=== PATIENT | male | born 1970 | race African-American/Black ===

== ENCOUNTER 2019-04-09 10:41 | Inpatient (IN) | payer OTHER ==
[~2019-04-09] VITALS: Ht 175.3 cm; Wt 82.1 kg
--- NOTE | ~2019-04-09 | EMS ---
[facility] [address] [place] [address] EMS Patient Care Report Name: SHANE TONG Room #: REG MIK Turner#: [id number] Admission: 04/09/19 Attend Phys: Discharge: Date of : 74 Report #: [id number] THIS REPORT FOR: //name// Report Transmitted: 04/09/2019 11:27 EMS Care Summary [place], [place]/[facility] Incident [id number] @ 04/09/2019 10:03 Incident Location [address] Patient SHANE TONG Male, 48 Years 1970 Patient Address [address] [place] [id number] Patient History Seizures,Anxiety Disorder (Panic Attacks),Paranoid Schizophrenia, Patient Allergies No known allergies, Patient Medications Haldol, Zofran, Lorazepam, Zyprexa, Tylenol, DuoNeb, Synthroid, Dilantin, Keppra, Chief Complaint SEIZURE Disposition Transported No Lights/Ramsay Dispatch Reason Convulsions/Seizure Transported To [facility] Narrative PT FOUND LYING IN GERICHAIR. [facility] P28 ON SCENE. STAFF REPORTS PT HAD BREAKFAST AND THEN THEY WERE UNABLE TO GET HIM TO TAKE HIS DILANTIN STARTING AT ABOUT [facility] [address] [place] [address] EMS Patient Care Report Name: SHANE TONG Room #: REG MIK Turner#: [id number] Admission: 04/09/19 Attend Phys: Discharge: Date of : 74 Report #: [id number] 0930. STAFF STATES PT IS SHAKING MORE THAN NORMAL AND NOT RESPONDING TO THEM PER HIS NORMAL. UNABLE TO GAIN IV ACCESS. PT NOTED TO HAVE REDUCTION IN SHAKING AND INCREASE IN LOC ABOUT 5 MINUTES POST MEDICATION. TRANSPORTED WITHOUT INCIDENT. Initial Vitals @10:21P: 81,R: 16,BP: 164/79,Pain: 0/10,GCS: 7,Glucose: 94,CO: 0,SpO2: 97,Revised Trauma: 10, @10:15P: 80,R: 16,Pain: 0/10,GCS: 7,Revised Trauma: 10, @10:34P: 80,R: 18,BP: 128/82,GCS: 12,Revised Trauma: 11, Assessments @10:13MENTAL:Unresponsive,SKIN:No Abnormalities,HEENT:Head/Face: No Abnormalities,Eyes: No Abnormalities,Neck/Airway: No Abnormalities,LUNG SOUNDS:ABDOMEN:PELVIS//GI:EXTREMITIES:PULSE:NEURO: Impression Seizures Procedures @10:21Midazolam - 5 Milligrams (mg) - IntranasalResponse: Improved@10:13ALS AssessmentResponse: UnchangedSucceeded@PTAOxygen FlowRate: 4 Device: Nasal Cannula (NC) Response: UnchangedSucceeded Timeline FEED CRUSHER,Oxygen FlowRate: 4 Device: Nasal Cannula (NC) Response: UnchangedSucceeded, 10:01,Call Received 10:01,Dispatch Notified 10:03,Dispatched 10:03,En Route 10:10,On Scene 10:13,At Patient 10:13,ALS Assessment,Response: UnchangedSucceeded, 10:15,BP: 150/ M,PULSE: 80,RR: 16 R,SPO2: Ox,ETCO2: ,BG: ,PAIN: 0,GCS: 7, 10:21,BP: 164/79 M,PULSE: 81,RR: 16 R,SPO2: 97 Ox,ETCO2: ,B,PAIN: 0,GCS: 7, 10:21,Midazolam - 5 Milligrams (mg) - Intranasal,Response: Improved 10:29,Depart Scene 10:34,BP: 128/82 M,PULSE: 80,RR: 18 R,SPO2: Ox,ETCO2: ,BG: ,PAIN: ,GCS: 12, 10:37,At Destination 10:53,Call Closed Disclaimer v1.1 Copyright 2019 [employer] This EMS Care Summary contains data elements from the applicable legal record (which may be displayed differently). It is designed to provide pertinent [address] [address] EMS Patient Care Report Name: SHANE TONG Room #: REG ER .R.#: [id number] Admission: 04/09/19 Attend Phys: Discharge: Date of : 74 Report #: [id number] information for the following purposes: continuity of care, clinical quality, and state data reporting. The complete legal record is available to ED staff and administrators of the receiving hospital in [employer]'s Patient Tracker. All data is provided "as is."
[~2019-04-09 10:41] MED LIST: ABILIFY10 MG PO; AMANTADINE100 M1 PO; ANDROGEL1.25 GM TD; ATIVAN1 MG PO; BENZTROPINE MESY2 MG PO; CHLORPROMAZINE25 M3 PO; DESMOPRESSIN A0.2 M2 PO; IRON325 PO; LEVOTHYROXIN0.075 MG PO; LORAZEPAM 22 MG/1 ML IM; NEURONTIN600 MG PO; NUEDEXTA 20-101 EACH PO; QUETIAPINE FUM300 MG PO; QUETIAPINE FUMARATE PO; VITAMIN D3400 UNI2 PO
[2019-04-09 10:44] VITALS: BP 115/80
[2019-04-09 11:00] LABS: ABSOLUTE NEUTROPHILS 3.9 thou/uL (1.4-8.2); BASOPHILS 0.6 % (0.0-2.0); EOSINOPHILS 0.8 % (0.0-3.0); HEMATOCRIT 44.2 % (42.0-52.0); HEMOGLOBIN 14.5 gm/dL (14.0-18.0); LYMPHOCYTES 20.1 % (24.0-44.0); MCH 28.5 pg (26.0-34.0); MCHC 32.7 g/dL (28.0-37.0); MCV 87.1 fL (80.0-100.0); MONOCYTES 5.6 % (1.0-8.0); PLATELET COUNT 164 thou/uL (150-400); POLYS 72.9 % (36.0-66.0); RBC 5.08 mil/uL (4.50-6.00); RDW 13.2 % (10.5-14.5); WBC 5.3 thou/uL (4.0-11.0)
[2019-04-09 11:10] LABS: CALCIUM 8.5 mg/dL (8.5-10.1); CREATININE 0.6 mg/dL (0.7-1.3); POTASSIUM 4.3 mmol/L (3.5-5.1)
[2019-04-09 11:16] LABS: ALBUMIN 3.9 g/dL (3.4-5.0); MAGNESIUM 1.9 mg/dL (1.8-2.4); TOTAL BILIRUBIN 0.2 mg/dL (<0.1-1.0)
[2019-04-09 12:36] LABS: URINE BILIRUBIN NEGATIVE (Negative); URINE BLOOD NEGATIVE (Negative); URINE CLARITY CLEAR; URINE COLOR YELLOW; URINE GLUCOSE-RANDOM* NEGATIVE (Negative); URINE KETONES NEGATIVE (Negative); URINE LEUKOCYTES-REFLEX NEGATIVE (Negative); URINE NITRITE-REFLEX NEGATIVE (Negative); URINE PROTEIN (DIPSTICK) NEGATIVE (Negative); URINE SPECIFIC GRAVITY <= 1.005 (1.005-1.035); URINE UROBILINOGEN 0.2 E.U./dl (0.2-1.0)
[2019-04-09 12:42] LABS: AMP/METHAMP Negative (Negative); BARBITURATES Negative (Negative); BENZODIAZEPINES POSITIVE (Negative); COCAINE Negative (Negative); METHADONE Negative (Negative); OPIATES Negative (Negative); PCP Negative (Negative)
[2019-04-09 15:20] VITALS: BP 135/88
[2019-04-09 15:27] VITALS: BP 135/88
[2019-04-09 16:43] VITALS: BP 128/95
--- NOTE | 2019-04-09 16:45 | NUR ---
F[age]Y [age] YEAR OLD MALE ADMITTED TO 3WEST ROOM 362 UNDER THE CARE OF ROSANA HANKS. PT WAS BROUGHT INTO THE ER PER EMS FROM SKILLED NURSING AFER PT REFUSED TO TAKE ANY MEDICAIONS, ALTERE MENTAL STATUS, AND SEIZURE ACTIVITY. PT IS AWAKE, BUT IS NONVERBAL. PT DOES SEEM TO RESPOND WHEN HIS NAME IS BEING CALLED. PT DOES NOT APPEAR TO BE IN ANY PAIN/SOA. WILL CONTINUE TO MONITOR.
[2019-04-09 19:55] VITALS: BP 134/81
[2019-04-09 20:48] VITALS: BP 134/81
[2019-04-10 03:39] VITALS: BP 118/81
[2019-04-10 05:32] VITALS: BP 118/81
[2019-04-10] MEDS ORDERED: DILANTIN100 MG PO (05:36)
--- NOTE | 2019-04-10 05:44 | NUR ---
PT MAKING SLOW PROGRESS TOWARDS GOALS. PT FREQUENTLY SITTING UP IN BED, THEN LYING BACK DOWN. WILL SPONTANEOUSLY MOVE ABOUT THE BED WELL BUT NOT ATTEMPTS TO GET OUT OF BED. CONDOM CATH IN PLACE. PT OPENING MOUTH WHEN OFFERED A STRAW. DID FOLLOW COMMAND TO LIE BACK DOWN APPROPRIATELY.
[2019-04-10 07:49] VITALS: BP 118/84
--- NOTE | 2019-04-10 08:05 | EKG ---
[address] [address] ELECTROCARDIOGRAM REPORT Name: SHANE TONG Room #: 362-P ADM IN M.R.#: [id number] Admission: 04/09/19 Attend Phys: Sahra Reynaga MD Discharge: Date of : 74 Report #: [id number] THIS REPORT FOR: //name// [facility] ED Test Date: 2019-04-09 Test Time: 10:54:08 Pat Name: SHANE TONG Department: Room: 362 Gender: M Router Operator Radial: JNGUM : 1970 Requested By: Sahra Reynaga Order Number: [id number] MD: Rogelio Guajardo Measurements Intervals [place] Rate: 90 P: 40 PA: 136 QRS: 27 QRSD: 114 T: 42 QT: 378 QTc: 463 Interpretive Statements Sinus rhythm Borderline intraventricular conduction delay Baseline wander in lead(s) V4 No previous ECG available for comparison Electronically Signed On 04-10-2019 8:05:30 CDT by Rogelio Guajardo [email or web address] <ELECTRONICALLY SIGNED> By: Rogelio Guajardo MD 04/10/19 0805 1054 1054 Rogelio Guajardo MD /BRANDY
[2019-04-10 08:08] LABS: ABSOLUTE NEUTROPHILS 3.7 thou/uL (1.4-8.2); BASOPHILS 0.4 % (0.0-2.0); EOSINOPHILS 1.3 % (0.0-3.0); HEMATOCRIT 42.2 % (42.0-52.0); HEMOGLOBIN 13.7 gm/dL (14.0-18.0); LYMPHOCYTES 29.5 % (24.0-44.0); MCH 28.2 pg (26.0-34.0); MCHC 32.4 g/dL (28.0-37.0); MCV 86.9 fL (80.0-100.0); PLATELET COUNT 156 thou/uL (150-400); POLYS 60.8 % (36.0-66.0); RBC 4.85 mil/uL (4.50-6.00); RDW 12.9 % (10.5-14.5); WBC 6.1 thou/uL (4.0-11.0)
[2019-04-10 08:23] LABS: ALBUMIN 3.7 g/dL (3.4-5.0); CALCIUM 9.3 mg/dL (8.5-10.1); CREATININE 0.6 mg/dL (0.7-1.3); MAGNESIUM 1.9 mg/dL (1.8-2.4); POTASSIUM 3.8 mmol/L (3.5-5.1); TOTAL BILIRUBIN 0.4 mg/dL (<0.1-1.0); TOTAL PROTEIN 6.6 g/dL (6.4-8.2)
--- NOTE | 2019-04-10 10:36 | NUR ---
INITIAL ASSESSMENT: Received consult. REBECA reviewed chart and spoke with nursing. Pt was admitted from [facility] due to seizure activity. Pt with hx of TBI/schizophrenia/intellectual delay. Pt is a sw[place] of the state. [facility] Public Consumer Services Advisor is pt's legal guardian. Paperwork on chart from facility. REBECA contacted Mayito Combs with the [facility] [place] office to notify of admission. Verbal consent to treat obtained. REBECA faxed ppwk to PA office for review and signature. Plan is for pt to return to [facility] when medically stable. landscape architect and planner to fax clinical info to [facility] for review. Pt is currently on IV Keppra and IV abx. Neuro consulted. Pt has been non-verbal. Per Mayito Combs, pt can be non-verbal but can also be verbal as well. Contact info for [facility] PA office placed in Playviews. REBECA update pt's nurse. REBECA is following to assist as needed with discharge planning.
[2019-04-10 11:32] VITALS: BP 118/86
--- NOTE | 2019-04-10 15:00 | NUR ---
DISCHARGE PLANNING. PATIENT ADMITTED FROM [facility]UM[facility] ASSIST[facility] CARE UNIT. PLAN IS FOR PATIENT TO RETURN TO [facility] ONCE MEDICALLY READY. CLINICAL INFORMATION FAXED TO [facility] MEDICAL LABORATORY TECHNOLOGIST, NOTIFIED OF POSSIBLE DC TOMORROW. PUBLIC CONTRACT MANAGER NOTIFIED PER UNIT SW. FOLLOWING TO ASSIST.
[2019-04-10 16:15] VITALS: BP 114/80
--- NOTE | 2019-04-10 17:47 | NUR ---
ASSUMED CARE OF PATIENT AT 0700. VSS. PATIENT IS NONVERBAL BUT SPONTANEOUSLY OPENS EYES AND REACTS TO PAIN. TOLERATED IV THERAPY WELL TODAY. DID NOT PULL AT LINES THIS SHIFT. NO SEIZURE ACTIVITY TODAY. NSR. RA. CONDOM CATHETHER. PATIENT HAD SPEECH THERAPY CONSULT TODAY, THEY ADVISED HIS CONSISTENCY BE CHANGED TO PUREED DIET. CONTINUING TO MONITOR.
[2019-04-10 20:08] VITALS: BP 110/78
[2019-04-11 04:16] VITALS: BP 100/64
[2019-04-11 05:20] LABS: ABSOLUTE NEUTROPHILS 3.3 thou/uL (1.4-8.2); BASOPHILS 0.5 % (0.0-2.0); EOSINOPHILS 1.9 % (0.0-3.0); HEMATOCRIT 42.4 % (42.0-52.0); HEMOGLOBIN 13.7 gm/dL (14.0-18.0); LYMPHOCYTES 35.4 % (24.0-44.0); MCH 28.1 pg (26.0-34.0); MCHC 32.4 g/dL (28.0-37.0); MCV 86.6 fL (80.0-100.0); MONOCYTES 6.4 % (1.0-8.0); PLATELET COUNT 164 thou/uL (150-400); POLYS 55.8 % (36.0-66.0); RDW 12.9 % (10.5-14.5); WBC 5.8 thou/uL (4.0-11.0)
[2019-04-11 05:33] LABS: CALCIUM 8.7 mg/dL (8.5-10.1); CREATININE 0.6 mg/dL (0.7-1.3); MAGNESIUM 1.8 mg/dL (1.8-2.4); POTASSIUM 4.1 mmol/L (3.5-5.1)
[2019-04-11 07:54] VITALS: BP 111/79
--- NOTE | 2019-04-11 07:59 | NUR ---
PT MAKING SLOW PROGRESS TOWARDS GOALS. PT MOVING ABOUT THE BED AT TIMES. OCCASIONALLY SITTING UP, LYING DOWN, TURNING OVER. TAKING PO FLUIDS AND FOOD WHEN OFFERED.
--- NOTE | 2019-04-11 12:01 | NUR ---
DISCHARGE NOTE: REBECA reviewed chart and spoke with nursing and attending physician. Pt is medically stable for discharge back to [facility] today. Awaiting final discharge orders/summary at this time. Pt to be on a pureed diet. REBECA notified [facility] office-Mayito Combs to notify of discharge. SW to fax final discharge orders/summary when available. Pt will need stretcher van transportation. REBECA left voice message for [employer] [facility] [employer]. Chart copy requested. REBECA is following to finalize discharge.
[2019-04-11] MEDS ORDERED: LEVETIRACE100 MG/1 M PO (13:03)
[2019-04-11] MEDS ORDERED: QUETIAPINE FUM300 MG PO (13:05)
[2019-04-11] MEDS ORDERED: CEFACLOR500 MG PO (13:15)
--- NOTE | 2019-04-11 14:13 | NUR ---
FAXED INFORMATION TO THA AT [facility] INCLUDING D/C SUMMARY D/C ORDERS PLACED CALL TO THA BRAND FOR HER THAT SHE HAS A FAX COMING. PLEASE CALL TROY BACK IF SHE DOESNT RECEIVE FAX
[2019-04-11 14:14] VITALS: BP 111/79
--- NOTE | 2019-04-11 14:17 | NUR ---
ASSUMED PATIENT CARE AT 0700. ALERT, NONE VERBLE. NO DISDRESS NOTED. TOLERATED DIET. MESSAGE LEFT FOR YVROSE THAT WAITING CALL BACK GIVE REPORT.
--- NOTE | 2019-04-12 14:17 | HC ---
[facility] [place] [address] CONSULTATION Name: SHANE TONG Room #: 362-P [facility] IN M.R.#: [id number] Admission: 04/09/19 Attend Phys: Sahra Reynaga MD Discharge: 04/11/19 Date of : 74 Report #: [id number] THIS REPORT FOR: //name// CC: Emeka Reynaga DATE OF SERVICE: 04/09/2019 HISTORY OF PRESENT ILLNESS: This is a 48-year-old male patient who is unable to provide any history at all. I talked to the admitting doctor, Dr. Reynaga. I reviewed the note from Emergency Room. This patient is nonverbal as I understand because of some traumatic brain injury. The patient had become uncooperative this morning. It is not sure what the reason for his being noncooperative was. He had some shakiness along with it. He does shake some in the baseline, but is refusing to take the medication. Review of system is from the records and it looks like this patient has paranoid schizophrenia. He also has intellectual disabilities. He is on Dilantin and Keppra; I do not know the dosages for that. Apparently, his Dilantin level was checked and it was low therapeutic, it was checked here and it was 10.8. REVIEW OF SYMPTOMS:: A 14-point review of system was attempted by talking to other physicians and reviewing the records and this was the patient's relevant 14-point review of system. PAST MEDICAL HISTORY: Positive for the fact that this patient is nonverbal, whether it is because of injury or is a psychiatric problem is not clear. FAMILY HISTORY: Unavailable. SOCIAL HISTORY: Not known if the patient smokes or drinks alcohol, but he lives in a custodial, making it less likely or unlikely. PHYSICAL EXAMINATION: The patient's examination is very limited. He did not say a single word on my examination, but that appeared to be his baseline. He is alert, but he did not follow any simple commands. It was impossible to check his memory, fund of knowledge because of that. His cranial nerve examination 2-12 was attempted, but it was impossible to carry out because the patient did not cooperate. Neuromuscular examination was attempted and he did not cooperate, and I cannot tell if he moves both sides or not. There is no meningeal sign in this patient. Cardiac examinations appear unremarkable. No respiratory difficulty or rhonchi was noticed. Blood pressure is 128/95, respiration is 20, pulse is 91, temperature is 99.3. LABORATORY DATA: Indicate white count is 5.3. His GFR is 176. His Dilantin level is summarized above. The CT scan showed no acute changes. [address] [address] CONSULTATION Name: SHANE TONG Room #: 362-P DIS IN M.R.#: [id number] Admission: 04/09/19 Attend Phys: Sahra Reynaga MD Discharge: 04/11/19 Date of : 74 Report #: [id number] IMPRESSION: It would appear that the patient's symptoms are most likely secondary to reoccurrence of the seizures or the psychiatric problem or combination. Stroke is possible, but less likely, but he is not a candidate for any intervention because the symptoms started this morning and in fact may have even woken up with the symptoms, although he did take some medication at that time. There is nobody to discuss the situation. I will get an EEG done in this patient. We may give him an extra Dilantin to get his level to high therapeutic range. Further workup will depend upon the outcome of the above testing. Thank you very much for this referral, and if you have any question, please feel free to contact me. <ELECTRONICALLY SIGNED> By: Caden Jade MD 04/12/19 1417 1857 0507 Caden Jade MD /nt
--- NOTE | 2019-04-12 14:17 | EEG ---
[facility] [address] [place] [address] ELECTROENCEPHALOGRAM Name: SHANE TONG Room #: 362-P [facility] IN M.R.#: [id number] Admission: 04/09/19 Attend Phys: Sahra Reynaga MD Discharge: 04/11/19 Date of : 74 Report #: [id number] THIS REPORT FOR: //name// CC: Emeka Reynaga DATE OF SERVICE: 04/09/2019 This patient is being evaluated for the possibility of seizure. The patient's EEG was done by placing the electrode by standard 10-20 system of electrode placement. Both referential and sequential montages were used for recording. Background activity in this patient's EEG is about 7 Hz and 30 microvolts. Photic stimulation was unremarkable. No active epileptiform activity was noticed during this record. IMPRESSION: In spite of the patient's history of seizure, no active epileptiform activity was noticed during this record. It might be mentioned that EEG can be normal in the patient with seizure disorder. Thank you very much for this referral. <ELECTRONICALLY SIGNED> By: Caden Jade MD 04/12/19 1417 1251 1333 Caden Jade MD /nt
== END 2019-04-11 17:35 | DRG 100 ==
LOC: ER 10:41 → EROBS 13:03 → 3W 15:38
PROVIDERS: Emergency Medicine; Nurse Practitioner Family; ADMIT Internal Medicine
DX: G40.909 Epilepsy, unspecified, not intractable, without status epilepticus (principal); J18.9 Pneumonia, unspecified organism; F20.0 Paranoid schizophrenia; F41.9 Anxiety disorder, unspecified; K59.09 Other constipation; Z79.899 Other long term (current) drug therapy
CPT/HCPCS: 10879

== ENCOUNTER → 2019-06-27 | Outpatient (CLI) | payer OTHER ==
[~2019-06-27] MED LIST changes: +CEFACLOR500 MG PO; +DILANTIN100 MG PO; +LEVETIRACE100 MG/1 M PO
== END ==
LOC: RAD 08:58 → SPEECH 08:58 → RAD 11:20
DX: R47.01 Aphasia (principal); R13.13 Dysphagia, pharyngeal phase

== ENCOUNTER 2019-07-12 17:37 | Emergency (ER) | payer OTHER ==
[~2019-07-12] VITALS: Ht 175.3 cm; Wt 69.4 kg
--- NOTE | ~2019-07-12 | EKG ---
[facility] [place] [address] ELECTROCARDIOGRAM REPORT Name: SHANE TONG Room #: REG ER M.R.#: [id number] Admission: 07/12/19 Attend Phys: Discharge: Date of : 74 Report #: [id number] THIS REPORT FOR: cc: Emeka Pereyra MD, Dennis R MD Epiphany, Epiphany MD ~ THIS REPORT FOR: //name// [facility] ED Test Date: 2019-07-12 Test Time: 19:22:35 Pat Name: SHANE TONG Department: Room: Gender: M Siebel Administrator: tk : 1970 Requested By: Candelaria Montenegro Order Number: [id number] MD: Measurements Intervals [place] Rate: 61 P: 45 NV: 132 QRS: 52 QRSD: 108 T: 72 QT: 450 QTc: 454 Interpretive Statements Sinus rhythm Baseline wander in lead(s) V6 Compared to ECG 04/09/2019 10:54:08 No significant changes [email or web address] By: 192 21 Epiphany Epiphany, /EPI
[2019-07-12 18:20] LABS: HEMATOCRIT 45.5 % (42.0-52.0); HEMOGLOBIN 14.6 gm/dL (14.0-18.0); MCH 28.3 pg (26.0-34.0); MCV 88.5 fL (80.0-100.0); RBC 5.15 mil/uL (4.50-6.00); WBC 8.6 thou/uL (4.0-11.0)
[2019-07-12 18:36] LABS: ANION GAP 0 mmol/L (7-16); BUN 19 mg/dL (7-18); CALCIUM 8.5 mg/dL (8.5-10.1); CHLORIDE 105 mmol/L (98-107); CO2 36 mmol/L (21-32); CREATININE 0.5 mg/dL (0.7-1.3); GLUCOSE 102 mg/dL (74-106); POTASSIUM 4.8 mmol/L (3.5-5.1); SODIUM 141 mmol/L (136-145)
[2019-07-12 18:41] LABS: ALBUMIN 3.8 g/dL (3.4-5.0); SGOT 23 U/L (15-37); SGPT 22 U/L (30-65); TOTAL BILIRUBIN 0.3 mg/dL (<0.1-1.0); TOTAL PROTEIN 7.2 g/dL (6.4-8.2); TROPONIN-I <0.06 ng/mL (<0.06)
[2019-07-12] MEDS ORDERED: MEDROXYPROGESTER5 MG PO (18:47)
[2019-07-12] MEDS ORDERED: OLANZAPINE10 M1 PO (18:48)
[2019-07-12] MEDS ORDERED: BENZTROPINE MES1 MG PO (18:49)
[2019-07-12] MEDS ORDERED: PHENYTOIN SODI100 M3 PO (18:51)
[2019-07-12] MEDS ORDERED: MELATONIN10 M3 PO (18:51)
[2019-07-12] MEDS ORDERED: HALDOL 0.5 MG0.5 MG PO (18:53)
[2019-07-12] MEDS ORDERED: LORAZEPAM 2MG TA2 M1 PO (18:54)
[2019-07-12] MEDS ORDERED: LORAZEPAM 0.50.5 MG PO (18:55)
[2019-07-12] MEDS ORDERED: ZYPREXA10 MG IM (18:57)
[2019-07-12] MEDS ORDERED: RESTORIL30 MG PO (18:58)
[2019-07-12] MEDS ORDERED: DEPAKOTE ER500 M1 PO (18:58)
[2019-07-12] MEDS ORDERED: NEURONTIN 300M300 M2 PO (18:59)
[2019-07-12] MEDS ORDERED: ZYPREXA ZYDIS10 MG PO (19:01)
[2019-07-12 21:55] LABS: URINE BILIRUBIN NEGATIVE (Negative); URINE BLOOD NEGATIVE (Negative); URINE CLARITY CLEAR; URINE COLOR YELLOW; URINE GLUCOSE-RANDOM* NEGATIVE (Negative); URINE KETONES TRACE (Negative); URINE LEUKOCYTES-REFLEX NEGATIVE (Negative); URINE NITRITE-REFLEX NEGATIVE (Negative); URINE PROTEIN (DIPSTICK) NEGATIVE (Negative); URINE SPECIFIC GRAVITY >= 1.030 (1.005-1.035); URINE UROBILINOGEN 0.2 E.U./dl (0.2-1.0)
[2019-07-13 00:10] VITALS: BP 111/73
== END 2019-07-13 00:22 | disposition home or self-care (01) ==
LOC: ER 17:37
PROVIDERS: Student in an Organized Health Care Education/Training Program
DX: R89.2 Abnormal level of other drugs, medicaments and biological substances in specimens from other organs, systems and tissues (principal); R53.83 Other fatigue; R56.9 Unspecified convulsions; K59.00 Constipation, unspecified; F41.9 Anxiety disorder, unspecified; F20.9 Schizophrenia, unspecified

== ENCOUNTER 2019-09-05 04:01 | Inpatient (IN) | payer OTHER ==
[2019-09-05] VITALS (41 sets, daily range): BP systolic 81–141; BP diastolic 36–112
[~2019-09-05] VITALS: Ht 177.8 cm; Wt 83.6 kg
--- NOTE | ~2019-09-05 | EEG ---
[facility] [place] [address] ELECTROENCEPHALOGRAM Name: SHANE TONG Room #: 245-P ADM IN M.R.#: [id number] Admission: 09/05/19 Attend Phys: Sahra Reynaga MD Discharge: Date of : 74 Report #: [id number] THIS REPORT FOR: //name// CC: Samm Tang DATE OF SERVICE: 09/11/2019 This patient is unresponsive after hypoxic encephalopathy. EEG still shows very low voltage activities. It is difficult to tell the frequency because amplitude is less than 3 microvolt. Photic stimulation is unremarkable. 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 EEG is not isoelectric at this stage. Thank you very much for this referral. By: 1432 1449 Caden Jade MD /nt
[~2019-09-05 04:01] MED LIST changes: +BENZTROPINE MES1 MG PO; +DEPAKOTE ER500 M1 PO; +HALDOL 0.5 MG0.5 MG PO; +LORAZEPAM 0.50.5 MG PO; +LORAZEPAM 2MG TA2 M1 PO; +MEDROXYPROGESTER5 MG PO; +MELATONIN10 M3 PO; +NEURONTIN 300M300 M2 PO; +OLANZAPINE10 M1 PO; +PHENYTOIN SODI100 M3 PO; +RESTORIL30 MG PO; +ZYPREXA ZYDIS10 MG PO; +ZYPREXA10 MG IM
[2019-09-05 04:43] LABS: HEMATOCRIT 37.1 % (42.0-52.0); HEMOGLOBIN 11.5 gm/dL (14.0-18.0); MCH 28.6 pg (26.0-34.0); MCHC 31.1 g/dL (28.0-37.0); MCV 92.1 fL (80.0-100.0); PLATELET COUNT 69 thou/uL (150-400); RBC 4.02 mil/uL (4.50-6.00); RDW 14.3 % (10.5-14.5); WBC 8.1 thou/uL (4.0-11.0)
[2019-09-05 04:47] LABS: ANION GAP 16 mmol/L (7-16); BUN 11 mg/dL (7-18); CALCIUM 8.8 mg/dL (8.5-10.1); CHLORIDE 107 mmol/L (98-107); CO2 20 mmol/L (21-32); CREATININE 1.1 mg/dL (0.7-1.3); GLUCOSE 350 mg/dL (74-106); POTASSIUM 3.8 mmol/L (3.5-5.1); SODIUM 143 mmol/L (136-145)
[2019-09-05 04:56] LABS: ALBUMIN 2.3 g/dL (3.4-5.0); DIRECT BILIRUBIN < 0.1 mg/dL (<0.1-0.2); SGOT 135 U/L (15-37); SGPT 120 U/L (30-65); TOTAL BILIRUBIN 0.1 mg/dL (<0.1-1.0); TOTAL PROTEIN 4.3 g/dL (6.4-8.2); TROPONIN-I <0.06 ng/mL (<0.06)
[2019-09-05 05:11] LABS: BE(vivo) -11.2 mmol/L (-2 to +3); HCO3 16.8 mmol/L (22.0-26.0); PCO2 45.6 mmHg (35.0-45.0); PO2 284.6 mmHg (80.0-100.0); sO2 99.5 % (92.0-98.0)
[2019-09-05 05:12] LABS: pH 7.184 (7.360-7.450)
[2019-09-05 05:33] LABS: URINE BILIRUBIN NEGATIVE (Negative); URINE BLOOD 3+ (Negative); URINE CLARITY CLOUDY; URINE COLOR YELLOW; URINE GLUCOSE-RANDOM* TRACE (Negative); URINE KETONES TRACE (Negative); URINE LEUKOCYTES-REFLEX TRACE (Negative); URINE NITRITE-REFLEX NEGATIVE (Negative); URINE PROTEIN (DIPSTICK) 2+ (Negative); URINE SPECIFIC GRAVITY >= 1.030 (1.005-1.035); URINE UROBILINOGEN 0.2 E.U./dl (0.2-1.0)
[2019-09-05 05:41] LABS: AMP/METHAMP Negative (Negative); BARBITURATES Negative (Negative); BENZODIAZEPINES POSITIVE (Negative); COCAINE Negative (Negative); METHADONE Negative (Negative); OPIATES Negative (Negative); PCP Negative (Negative)
[2019-09-05 05:50] LABS: ABSOLUTE NEUTROPHILS 2.5 thou/uL (1.4-8.2)
[2019-09-05 05:51] LABS: ANISOCYTOSIS 1+; PLATELET ESTIMATE DECREASED; POIKILOCYTOSIS 1+
[2019-09-05 05:54] LABS: BE(vivo) -8.9 mmol/L (-2 to +3); HCO3 15.4 mmol/L (22.0-26.0); PO2 599.3 mmHg (80.0-100.0); pH 7.343 (7.360-7.450); sO2 99.9 % (92.0-98.0)
[2019-09-05 06:12] LABS: SQUAMOUS 4-10 Moderate /LPF (0-3)
[2019-09-05 06:14] LABS: CASTS None Seen /LPF (None Seen); CRYSTALS None Seen /LPF (None Seen); MUCUS 4-6 Moderate strn/LPF (None Seen); URINE WBC-REFLEX 6-15 Few /HPF (0-5)
[2019-09-05 06:21] LABS: APTT 24.4 Seconds (24.5-32.8); INR 1.5; PROTIME 15.2 Seconds (9.3-11.4)
[2019-09-05 06:29] LABS: D-DIMER 27.2 ug/mLFEU (0.19-0.50)
[2019-09-05] MEDS ORDERED: PROVERA5 MG PO (08:27)
[2019-09-05] MEDS ORDERED: SLOW FE142 MG PO (08:27)
[2019-09-05] MEDS ORDERED: DESMOPRESSIN A0.2 M2 PO (08:27)
[2019-09-05] MEDS ORDERED: SYNTHROID75 MCG PO (08:27)
[2019-09-05] MEDS ORDERED: VITAMIN D310 MC2 PO (08:28)
[2019-09-05] MEDS ORDERED: OLANZAPINE10 M1 PO (08:28)
[2019-09-05] MEDS ORDERED: TRAZODONE HCL50 MG PO (08:29)
[2019-09-05] MEDS ORDERED: HALDOL 0.5 MG0.5 MG IM (08:30)
[2019-09-05] MEDS ORDERED: LORAZEPAM 2MG2 MG/M1 IM (08:31)
--- NOTE | 2019-09-05 08:40 | NUR ---
CONSENT FROM PUBLIC PHOTONICS ENGINEERING TECHNOLOGIST, DENISE CORONA, AT THIS TIME. WITNESSED BY FAWAD PADILLA RN. CONTACT #: [phone]
--- NOTE | 2019-09-05 09:16 | EKG ---
[facility] [place] [address] ELECTROCARDIOGRAM REPORT Name: KAYDEN TONG Room #: REG M.R.#: [id number] Admission: 09/05/19 Attend Phys: Discharge: Date of : 74 Report #: [id number] THIS REPORT FOR: cc: Evan Gaytan Eric DO Lundgren,Samm Page MD [facility] ~ THIS REPORT FOR: //name// [facility] ED Test Date: 2019-09-05 Test Time: 04:13:21 Pat Name: KAYDEN TONG Department: Room: Gender: M Java Grails Developer: CITLALI : 1970 Requested By: Kayden Collins Order Number: [id number] MD: Samm Matos Measurements Intervals [place] Rate: 100 P: GA: QRS: -7 QRSD: 117 T: 197 QT: 344 QTc: 444 Interpretive Statements Atrial fibrillation Nonspecific intraventricular conduction delay Repol abnrm, diffuse leads Compared to ECG 07/12/2019 19:22:35 Sinus rhythm no longer present ST and T wave abnormality is now present Electronically Signed On 09-05-2019 9:15:19 CDT by Samm Matos [email or web address] <ELECTRONICALLY SIGNED> By: Samm Matos MD, FACC 09/05/19 0915 0413 0413 Samm Matos MD, [facility] /EPI
--- NOTE | 2019-09-05 09:18 | EKG ---
[facility] [place] [address] ELECTROCARDIOGRAM REPORT Name: KAYDEN TONG Room #: REG M.R.#: [id number] Admission: 09/05/19 Attend Phys: Discharge: Date of : 74 Report #: [id number] THIS REPORT FOR: cc: Evan Gaytan Eric DO Lundgren,Samm Page MD [facility] ~ THIS REPORT FOR: //name// [facility] ED Test Date: 2019-09-05 Test Time: 05:20:27 Pat Name: KAYDEN TONG Department: Room: Gender: M Plane Tender: paul khan : 1970 Requested By: Kayden Collins Order Number: [id number] MD: Samm Matos Measurements Intervals [place] Rate: 90 P: 43 VA: 108 QRS: 1 QRSD: 114 T: 104 QT: 446 QTc: 546 Interpretive Statements Sinus rhythm Short VA interval Borderline intraventricular conduction delay Abnormal R-wave progression, early transition Nonspecific ST and T wave abnormality Prolonged QT interval No previous ECGs available for comparison Electronically Signed On 09-05-2019 9:17:19 CDT by Samm Matos [email or web address] <ELECTRONICALLY SIGNED> By: Samm Matos MD, [facility] 09/05/19 0917 9 9 Samm Matos MD, [facility] /EPI
--- NOTE | 2019-09-05 12:00 | NUR ---
report received from MIK Isaacs RN. pt received in icu #245 per cart on ventilator post cardiac arrest in special isolation- droplet/airborne for rule out covid-19. see assessment for details. unresponsive, hypothermia initiated in ER with ice packs applied. on icu arrival complete bath performed then hypothermia blankets applied to trunk/lower extremities. reapplied ice packs to underarms and groin. temp in room decreased. sr, tolerating vent, agonal breathing, no gag reflex upon oral suctioning, large amount oral secretions, and large amount urine output from ER.
--- NOTE | 2019-09-05 12:07 | NUR ---
CM ASSESSMENT: CASE OPENED FOR DC PLANNING. CLINICAL INFO REVIEWED AND CARLOTA BUSTOS FROM PA OFFICE REACHED OUT BY PHONE THIS AM TO CHECK ON PT. 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 CARLOTA CONFIRMS ER CALLED PA OFFICE AND OBTAINED VERBAL CONSENT TO TREAT FROM DENISE BOND. PT HAD WITNESS ARREST AT FACILITY AND IS POST CODE ON VENT AND HYPOTHEREMIA PROTOCOL. UPDATE PROVIDED TO Ivonne BUSTOS. COSMETIC SALES AND ICU TV NEWS DIRECTOR UPDATED PT HAS PA GUARDIAN AND CONTACT PROVIDED.
--- NOTE | 2019-09-05 12:53 | 2DMMODE ---
[facility] [place] [address] 2 D/M-MODE ECHOCARDIOGRAM Name: SHANE TONG Room #: 245-P ADM IN M.R.#: [id number] Admission: 09/05/19 Attend Phys: Sahra Reynaga MD Discharge: Date of : 74 Report #: [id number] THIS REPORT FOR: cc: Evan Gaytan,Samm Husain MD [facility] ~ APPROVED REPORT Study performed: 09/05/2019 10:44:24 EXAM: Comprehensive 2D, Doppler, and color-flow Echocardiogram Patient Location: ER Room #: 12 Status: routine BSA: 2.00 HR: 95 bpm BP: 145/109 mmHg Other Information Study Quality: Good Indications Hypertension/HDD S^P Code Left Ventricle Left ventricle is at the upper limits of normal. There is normal left ventricular wall thickness. Left ventricular ejection fraction is severely decreased. Kris-apical hypokinesis, possible apical "ballooning" seen with Takotsubo cardiomyopathy LVEF 20-25%. This study is not technically sufficient to allow evaluation of the LV diastolic function. Right Ventricle The right ventricle is normal size. The right ventricular systolic function is normal. Atria Left atrium is dilated. The right atrium size is normal. Aortic Valve The aortic valve is normal in structure. No aortic regurgitation is present. There is no aortic valvular stenosis. [facility] [place] [address] 2 D/M-MODE ECHOCARDIOGRAM Name: SHANE TONG Room #: 245-P ADM IN M.R.#: [id number] Admission: 09/05/19 Attend Phys: Sahra Reynaga, Discharge: Date of : 74 Report #: [id number] Mitral Valve The mitral valve is normal in structure. Moderate mitral regurgitation. No evidence of mitral valve stenosis. Tricuspid Valve The tricuspid valve is normal in structure. There is no tricuspid valve regurgitation noted. Pulmonic Valve Pulmonic valve is not well visualized. Great Vessels The aortic root is normal in size. IVC is not visualized. Pericardium There is no pericardial effusion. <Conclusion> Left ventricular ejection fraction is severely decreased. Kris-apical akinesis, possible apical "ballooning" seen with Takotsubo cardiomyopathy LVEF 20-25%. Left atrium is dilated. The aortic valve is normal in structure. No aortic regurgitation or stenosis The mitral valve is normal in structure. Moderate mitral regurgitation. Pulmonary artery systolic pressure could not be reliably ascertained There is no pericardial effusion. <ELECTRONICALLY SIGNED> By: Samm Matos MD, [facility] 09/05/19 1251 1251 1251 Samm Matos MD, FACC /INF
--- NOTE | 2019-09-05 13:19 | EKG ---
[facility] [place] [address] ELECTROCARDIOGRAM REPORT Name: KAYDEN TONG Room #: 245-P ADM IN M.R.#: [id number] Admission: 09/05/19 Attend Phys: Sahra Reynaga MD Discharge: Date of : 74 Report #: [id number] THIS REPORT FOR: cc: Evan Gaytan,Evan Ramirez,Rogelio Hernández MD ~ THIS REPORT FOR: //name// [facility] ED Test Date: 2019-09-05 Test Time: 04:21:37 Pat Name: KAYDEN TONG Department: Room: [facility] Gender: M Branch Manager Trainee: CITLALI : 1970 Requested By: Kayden Collins Order Number: [id number] MD: Rogelio Guajardo Measurements Intervals [place] Rate: 66 P: PA: QRS: -24 QRSD: 117 T: 158 QT: 341 QTc: 358 Interpretive Statements Atrial fibrillation. Nonspecific intraventricular conduction delay Low voltage, extremity leads Compared to ECG 07/12/2019 19:22:35 Electronically Signed On 09-05-2019 13:18:25 CDT by Rogelio Guajardo [email or web address] <ELECTRONICALLY SIGNED> By: Rogelio Guajardo MD 09/05/19 1318 0 0421 Rogelio Guajardo MD /EPI
--- NOTE | 2019-09-05 13:21 | NUR ---
Only able to obtain lactic acid when blood drawn. picc line ordered, PAULINO Perezchemical blender Access Team notified.
--- NOTE | 2019-09-05 14:00 | NUR ---
reapplying ice packs, fan on to increase cooling.
--- NOTE | 2019-09-05 19:15 | NUR ---
Dr. Tang present to see pt. Dr. Zepeda present to see pt at 1520. Called guardian/public sales support administrator to obtain telephone consent for central line placement. also, discussed pt's critical status being unresponsive with neuro deficits, on vent and EF- 10-20%. She deferred "allowing natural " no cpr or cardiac meds, to the guardian that is available tomorrow morning. spoke with Dr. Tang regarding low urine output, pt not tolerating chilled saline bolus. central line placement in progress. report given to oncoming rn's and notification given of medications unavailable therefore not administered and/or central line placement in progress.
[2019-09-05 19:51] LABS: BE(vivo) -6.5 mmol/L (-2 to +3); HCO3 18.7 mmol/L (22.0-26.0); PCO2 36.8 mmHg (35.0-45.0); PO2 90.2 mmHg (80.0-100.0); sO2 96.4 % (92.0-98.0)
[2019-09-05 19:52] LABS: pH 7.324 (7.360-7.450)
[2019-09-05 20:46] LABS: HEMATOCRIT 49.3 % (42.0-52.0); MCHC 33.2 g/dL (28.0-37.0); MCV 87.4 fL (80.0-100.0); RBC 5.63 mil/uL (4.50-6.00); RDW 14.1 % (10.5-14.5); WBC 16.5 thou/uL (4.0-11.0)
[2019-09-05 20:47] LABS: HEMOGLOBIN 16.3 gm/dL (14.0-18.0); PLATELET COUNT 246 thou/uL (150-400)
[2019-09-05 21:02] LABS: ALBUMIN 3.3 g/dL (3.4-5.0); CREATININE 1.4 mg/dL (0.7-1.3); MAGNESIUM 4.5 mg/dL (1.8-2.4); POTASSIUM 3.4 mmol/L (3.5-5.1); TOTAL BILIRUBIN 0.3 mg/dL (<0.1-1.0); TOTAL PROTEIN 6.2 g/dL (6.4-8.2)
[2019-09-05 21:38] LABS: ABSOLUTE NEUTROPHILS 14.2 thou/uL (1.4-8.2); PLATELET ESTIMATE NORMAL
[2019-09-06] VITALS (98 sets, daily range): BP systolic 75–178; BP diastolic 51–123
--- NOTE | 2019-09-06 01:18 | NUR ---
RISK, BENEFITS, AND ALTERNATIVE TREATMENT, DISCUSSED WITH THE DPOA. TEACHING GIVEN RELATED TO POSSIBLE COMPLICATIONS SUCH BLEEDING, INFECTION, CLOT, ORE VESSEL PERFORATION. INSTRUCTION GIVEN RELATED TO CLABSI PREVENTION WITH LITERATURE PROVIDED. DPOA VOICES UNDERSTANDING TO THE ABOVE AND GIVES CONSENT.TRIPLE LUMEN PICC PLACED TO LUE BRACHIAL VEIN. ONE STICK AND NO COMPLICATIONS. PATIENT TOLERATED WELL. CHEST XRAY OBTAINED WITH CONFIRMATION OF PICC IN THE DISTAL SVC.PATIENT'S RN NOTIFIED OKAY TO USE PICC.LENGHT=43 CM. EXTERAN =4CM.
--- NOTE | 2019-09-06 02:00 | NUR ---
ASSUMED PT CARE FROM ERICKA BOB AT 1900. PT VSS, WITH HR IN THE 50s. PT INTUBATED BUT NOT SEDATED. R JUGULAR CENTRAL LINE WAS BEING DONE AT THIS TIME. KUB AND CXR ORDERED TO CHECK PLACEMENT OF OGT AND CENTRAL LINE RESPECTIVELY. OGT WAS CONFORMED TO BE IN THE RIGHT SPOT HOWEVER, CENTRAL LINE WASNT; LINE WAS PULLED OUT. A NEW L UPPER ARM PICC WAS PLACED AND ANOTHER CXR CONFIRMED PLACEMENT. DR. OBRIEN CALLED AT 194 AND WAS INFORMED ABOUT U/O WHICH WAS 40ML/HR AT THIS TIME. DR OBRIEN ORDERED THAT PREVIOUSLY RX LASIX SHOULD BE HELD AND AN ORDER FOR RESTRAINTS WAS OBTAINED. PT REACHED GOAL TEMP OF 33 DEGREES CELCIUS AT 191. PROPOFOL STARTED AT 10 BECAUSE PT HAD SOME NONE-PURPOSEFUL MOVEMENTS. DOPAMINE GTT ALSO STARTED BECAUSE HR WAS IN THE HIGH 30S WITH MAP IN THE 50S. MTN NOTIIFIED OF PT'S STATUS, WAS TOLD TO CALL MTN BACK IF ANY SIGNIFICANT CHANGES OCCURS. KCL WAS 3.4 AND WAS REPLACED WITH 1 20MEQ BAG. INSULIN NOT STARTED BECAUSE BG WAS 168 AND TRENDING DOWN. PT IS STABLE NOW, TO BEGIN REWARMING 09/06/19 @1910.
[2019-09-06 04:44] LABS: CALCIUM 8.5 mg/dL (8.5-10.1); CREATININE 1.5 mg/dL (0.7-1.3); MAGNESIUM 3.2 mg/dL (1.8-2.4); PHOSPHORUS 2.1 mg/dL (2.5-4.9); TOTAL BILIRUBIN 0.7 mg/dL (<0.1-1.0)
[2019-09-06 05:24] LABS: POTASSIUM 2.9 mmol/L (3.5-5.1)
[2019-09-06 05:26] LABS: BE(vivo) -1.1 mmol/L (-2 to +3); HCO3 21.2 mmol/L (22.0-26.0); PCO2 30.3 mmHg (35.0-45.0); PO2 103.9 mmHg (80.0-100.0); pH 7.463 (7.360-7.450); sO2 98.1 % (92.0-98.0)
[2019-09-06 05:27] LABS: ABSOLUTE NEUTROPHILS 6.7 thou/uL (1.4-8.2); BASOPHILS 0.1 % (0.0-2.0); HEMATOCRIT 50.3 % (42.0-52.0); HEMOGLOBIN 16.8 gm/dL (14.0-18.0); LYMPHOCYTES 14.8 % (24.0-44.0); MCHC 33.5 g/dL (28.0-37.0); MCV 86.6 fL (80.0-100.0); MONOCYTES 8.4 % (1.0-8.0); POLYS 76.7 % (36.0-66.0); RBC 5.81 mil/uL (4.50-6.00); RDW 14.2 % (10.5-14.5); WBC 8.7 thou/uL (4.0-11.0)
[2019-09-06 05:38] LABS: PLATELET COUNT 158 thou/uL (150-400)
--- NOTE | 2019-09-06 08:51 | EKG ---
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 PATEL : 1970 Requested By: Bhavya Jarrett Order Number: [id number] MD: Samm Matos Measurements Intervals [place] Rate: 60 P: 53 MO: 104 QRS: 45 QRSD: 108 T: 165 QT: 653 QTc: 653 Interpretive Statements Sinus rhythm Short MO interval Low voltage, extremity leads Abnrm T, consider ischemia, anterolateral lds Prolonged QT interval Compared to ECG 09/05/2019 05:20:27 Possible ischemia now present Electronically Signed On 09-06-2019 8:49:52 CDT by Samm Matos [email or web address] <ELECTRONICALLY SIGNED> By: Samm Matos MD, FAC 09/06/19 0849 2 2 Samm Matos MD, FAC /EPI
--- NOTE | 2019-09-06 08:56 | NUR ---
REMAINS ON VENT, HYPOTHERMIA PROTOCOL WITH REWARMING LATE TODAY. UPDATE TO CARLOTA BUSTOS FROM [facility] PA OFFICE AND CLINICAL FAXED TO PA OFFICE. PT IS FULL CODE AT PRESENT PENDING EEG AND CT AFTER REWARMING. PA OFFICE AT [phone]/AFTER HOURS # [phone]. CAR FERRY CAPTAIN UPDATED AND PROVIDED WITH PA OFFICE CONTACT #S. ARIEL ADMISSIONS UPDATED.
--- NOTE | 2019-09-06 13:59 | NUR ---
Dr Tang here. Discussed possible placement of arterial line but blood draw but stated it is not indicated at this time. IV nurse notified that unable to draw from PICC line at this time to recheck potassium.
--- NOTE | 2019-09-06 17:30 | NUR ---
Dr Reynaga here. Discussed KUB results and lab work. Orders received.
--- NOTE | 2019-09-06 19:15 | NUR ---
Pt off Propofol majority of the shift. No puposeful movement or response to painful stimulus. Pt does assist the ventilator. Right fingers appear to curl in slightly. Pupils nonreactive at 3mm. No corneal reflex. Dr Reynaga indicated that CT of head ordered by neurologist can be done tomorrow. Report given to RN assuming care.
--- NOTE | 2019-09-06 19:34 | NUR ---
Dr Tang notified of hypotension and decreased urine output. Orders received for fluids, change to Levophed from Dopamine and Lasix. See orders.
[2019-09-07] VITALS (46 sets, daily range): BP systolic 89–173; BP diastolic 61–114
[2019-09-07 04:29] LABS: CALCIUM 7.6 mg/dL (8.5-10.1); CREATININE 1.7 mg/dL (0.7-1.3); POTASSIUM 3.4 mmol/L (3.5-5.1)
[2019-09-07 04:38] LABS: ALBUMIN 2.6 g/dL (3.4-5.0); CHOLESTEROL 122 mg/dL (<200); DIRECT BILIRUBIN 0.1 mg/dL (<0.1-0.2); HDL CHOLESTEROL 65 mg/dL (>40); LDL CHOLESTEROL 47 mg/dL (<100); LIPASE 71 U/L (73-393); MAGNESIUM 2.6 mg/dL (1.8-2.4); PHOSPHORUS 4.4 mg/dL (2.5-4.9); SGOT 139 U/L (15-37); SGPT 183 U/L (30-65); TC:HDL 1.9 Ratio (Not establshd); TOTAL BILIRUBIN 0.5 mg/dL (<0.1-1.0); TOTAL PROTEIN 5.5 g/dL (6.4-8.2); TRIGLYCERIDE 52 mg/dL (<150); VLDL 10 mg/dL (<40)
[2019-09-07 04:39] LABS: SERUM ASSESSMENT Clear
[2019-09-07 04:43] LABS: ABSOLUTE NEUTROPHILS 12.9 thou/uL (1.4-8.2); BASOPHILS 0.1 % (0.0-2.0); HEMATOCRIT 50.7 % (42.0-52.0); HEMOGLOBIN 16.6 gm/dL (14.0-18.0); LYMPHOCYTES 7.4 % (24.0-44.0); MCH 28.2 pg (26.0-34.0); MCHC 32.7 g/dL (28.0-37.0); MCV 86.2 fL (80.0-100.0); MONOCYTES 8.6 % (1.0-8.0); PLATELET COUNT 199 thou/uL (150-400); POLYS 83.9 % (36.0-66.0); RBC 5.88 mil/uL (4.50-6.00); RDW 14.8 % (10.5-14.5); WBC 15.4 thou/uL (4.0-11.0)
--- NOTE | 2019-09-07 06:29 | NUR ---
pt unarousable. no response to pain. sedation has been turned off since 09/05 0700 am. pt having agonal breathing. pt off levophed 09/05 2300. adequate urine output. MTN updated with pt situation. no family inquiries throughout the night. rewarming since 09/05 1909. Chart check. continue to monitor.
--- NOTE | 2019-09-07 11:55 | NUR ---
PICC LINE POWER FLUSHED AND HARLEY-RAYED. PICC NOW STRAIGHT. PICC RELEASED FOR IMMEDIATE USE TO MEHRAN BOB
--- NOTE | 2019-09-07 12:05 | NUR ---
Spoke with Kane in EEG and notified him that the house mover supervisor and legal records manager have stated that testing such as head CT and EEG do not have to be delayed until the covid test has resulted. Kane stated that he will not perform the EEG until Covid has resulted. Dr. Zepeda is aware. Nurse will continue to monitor.
--- NOTE | 2019-09-07 18:29 | NUR ---
PT is not progressing towards care plan goals. PT shows no signs of neurological improvement. Head CT showed increased swelling. Dr. Zepeda aware, ordered mannitol, and stated he would talk to the guardian once EEG is resulted. PT has not shown any purposeful movements however guppy like breathing is noted. Providers are aware. High fall risk precautions are in place. Nurse will continue to monitor.
[2019-09-08] VITALS (25 sets, daily range): BP systolic 133–178; BP diastolic 85–112
[2019-09-08 04:42] LABS: CALCIUM 7.6 mg/dL (8.5-10.1); CREATININE 2.2 mg/dL (0.7-1.3); POTASSIUM 4.1 mmol/L (3.5-5.1)
--- NOTE | 2019-09-08 07:51 | NUR ---
PATIENT NOT RESPONSIVE, DOES NOT RESPOND TO PAIN, DOES NOT HAVE CORNEAL REFLEX OR GAG REFLUX, NORMAL TEMPERATURE REMAINED PER PROTOCOL. SINUS RHYTHM ON TABULATING SUPERVISOR, CVP MONITORED. BLOOD PRESSURE FLUCTUATES, PRN HYDRALAZINE GIVEN PER ORDERS. OCAMPO PATENT AND GREATER THAN 30ML/HR. VENTILATOR SETTINGS CHANGED THIS MORNING, FIO2 CURRENTLY 30%. NO SIGN OF ACUTE RESPIRATORY PROCESS. SPOKE WITH DR. OBRIEN ABOUT DECREASE. WILL CONTINUE TO MONITOR.
--- NOTE | 2019-09-08 11:13 | NUR ---
PT NON-RESPONSIVE, NO GAG/CORNEAL/COUGH REFLEX. PUPILS NON-REACTIVE. MTN ASSESSED PT WITH DR. ROSSI. PT WILL CONTINUE TO BE A FULL CODE UNTIL OTHERWISE NOTIFIED BY THE PT'S STATE GUARDIAN. COOLING PADS REMOVED PER PROTOCAL. REPEAT EEG SCHEDULED FOR TOMORROW. HEAD CT SCHEDULED FOR TODAY.
--- NOTE | 2019-09-08 20:10 | NUR ---
pt not progressing towards goals. unresponsive. no sedation. vss.
[2019-09-09] VITALS (27 sets, daily range): BP systolic 146–169; BP diastolic 94–110
--- NOTE | 2019-09-09 03:25 | NUR ---
PATIENT'S NEUROLOGICAL STATUS UNCHANGED: IS NOT ALERT, DOES NOT RESPOND TO PAINFUL STIMULI, DOESN'T HAVE CORNEAL REFLEX, PUPIS NON-REACTIVE TO LIGHT. SINUS RHYTHM ON RADIO FREQUENCY TECHNICIAN. BLOOD PRESSURE FLUCTUATES, PRN MEDICATION GIVEN FOR HYPERTENSION. VENTILATOR SETTINGS 30% FIO2, O2 SAT REMAINED ABOVE 90%, PATIENT DOES NOT OVER BREATHE THE VENTILATOR, OCAMPO GREATER THAN 30 ML/HR OUTPUT. PATIENT NOT PROGRESSING TOWARDS GOALS. MTN FOLLOWING, AWAITING NEUROLOGY TO CONFIRM PATIENT'S CODE STATUS WITH DPAO. PLAN IS TO CLARIFY TODAY AND DISCUSS FURTHER PLANNING. NO SIGN OF PAIN/ACUTE DISTRESS NOTED AT THIS TIME. WILL CONTINUE TO MONITOR.
[2019-09-09 03:30] LABS: HEMATOCRIT 45.4 % (42.0-52.0); HEMOGLOBIN 14.8 gm/dL (14.0-18.0); MCH 28.3 pg (26.0-34.0); MCHC 32.5 g/dL (28.0-37.0); MCV 87.1 fL (80.0-100.0); RBC 5.21 mil/uL (4.50-6.00); RDW 14.8 % (10.5-14.5); WBC 12.5 thou/uL (4.0-11.0)
[2019-09-09 03:48] LABS: CALCIUM 8.1 mg/dL (8.5-10.1); CREATININE 2.3 mg/dL (0.7-1.3); POTASSIUM 3.9 mmol/L (3.5-5.1)
--- NOTE | 2019-09-09 10:26 | NUR ---
received phone call from neel seay, " if his father or sister calls it is ok to provide them with update on how he is doing"/dawood.
--- NOTE | 2019-09-09 10:28 | NUR ---
cm faxed request for dnr form and updated clinical to public admin office, radha seay. will cont following as needed. pt remains on vent and is nonresponsive.
[2019-09-09 12:20] LABS: BE(vivo) -0.2 mmol/L (-2 to +3); HCO3 24.2 mmol/L (22.0-26.0); PO2 130.2 mmHg (80.0-100.0); pH 7.411 (7.360-7.450); sO2 98.6 % (92.0-98.0)
[2019-09-09 12:41] LABS: BE(vivo) -0.2 mmol/L (-2 to +3); HCO3 25.4 mmol/L (22.0-26.0); PCO2 45.1 mmHg (35.0-45.0); PO2 280.6 mmHg (80.0-100.0); pH 7.369 (7.360-7.450); sO2 99.6 % (92.0-98.0)
--- NOTE | 2019-09-09 18:30 | NUR ---
ONLY BREATHING BREATHS DELIVERED BY VENT, NEVER BREATHING ABOVE VENT SET RR. LAURENT TONG- FATHER CALLED TO INQUIRE REGARDING PT STATUS, UPDATED.
[2019-09-10] VITALS (29 sets, daily range): BP systolic 130–178; BP diastolic 90–115
--- NOTE | 2019-09-10 01:36 | NUR ---
PATIENT UNABLE TO REGULATE NORMAL TEMPERATURE, BEAR ALBERTOGGER APPLIED AT 0130.
[2019-09-10 04:37] LABS: ALBUMIN 2.4 g/dL (3.4-5.0); CALCIUM 7.9 mg/dL (8.5-10.1); POTASSIUM 3.8 mmol/L (3.5-5.1); TOTAL BILIRUBIN 0.6 mg/dL (<0.1-1.0); TOTAL PROTEIN 5.8 g/dL (6.4-8.2)
--- NOTE | 2019-09-10 06:24 | NUR ---
PATIENT'S NEUROLOGICAL STATUS REMAINS UNCHANGED FROM PREVIOUS SHIFT. NORMAL TEMPERATURE POS-BEAR HUGGER APPLICATION. SPOKE WITH MTN AND UPDATED ON PATIENT'S CONDITION THIS MORNING, CURRENTLY 30% FIO2 ON VENTILATOR. PATIENT'S O2 SAT REMAINED ABOVE 92%, PATIENT DOES NOT OVER BREATHE THE VENTILATOR. PATIENT NOT PROGRESSING TOWARDS GOALS. NO SIGN OF ACUTE DISTRESS NOTED AT THIS TIME. WILL CONTINUE TO MONITOR.
[2019-09-10 08:18] LABS: BE(vivo) 0.4 mmol/L (-2 to +3); HCO3 24.4 mmol/L (22.0-26.0); PCO2 37.3 mmHg (35.0-45.0); PO2 121.8 mmHg (80.0-100.0); pH 7.433 (7.360-7.450); sO2 98.5 % (92.0-98.0)
--- NOTE | 2019-09-10 08:30 | NUR ---
Assumed care at 0700. PT is unresponsive, on vent, no sedation. MTN direct customer service representative is on unit awaiting results for apnea test. Apnea test began at 0825 and ended at 0828 after spontaneous breaths occurred. Dr. Alexander, Dr. Iqbal, and Dr. Jade on unit to assess PT and spoke with MTN rep. PT's state appointed guardian was notified by provider of plan of care. Dr. Alexander spoke with PT's sister on the phone at 1020 and updated her of PT's plan of care as well. RN spoke with warehouse consultant to get approved visitation for family as the plan is to withdraw care on PT. RN will continue to monitor.
--- NOTE | 2019-09-10 08:33 | NUR ---
anne reached out to radha seay with public admin office to see if they do organ donation, per PA " don't do organ donation, do not make those decision"/pa. anne passed on information to bedside nurse, and respiratory MD as well. 0920 organ donation team here for screening. MD seeing pt and requested pa number, anne passed on radha seay number. will cont following as needed for dc needs.
--- NOTE | 2019-09-10 09:26 | NUR ---
Nutrition: Pt NPO x 5 days. Very poor prognosis but POC not determined. If aggressive and pt able to tolerate enteral, REC Jevity 1.5 at 60 mL/hr.
--- NOTE | 2019-09-10 11:03 | NUR ---
RN spoke with sister, Jenna Mustafa, on the phone. She has passcode for PT. RN updated her on visitation policies in regards to comfort care. RN also requested a list of possible visitors and what day they may arrive to update the household appliances service technician and the visitors log. Jenna verbalized understanding and stated she would call nurse with more information after she speaks with her family. MTN was notified that the sister stated that she would try and visit today. RN will continue to monitor.
--- NOTE | 2019-09-10 13:11 | NUR ---
PT's sister, Jenna Briceno, called RN. Jenna provided nurse with a list of names of possible visitors at 1303. RN verbalized understanding and noted the list of visitors as follows: Jenna and Evan Kaity, Jorgito Myles, Ferny Coles, Elsy Lei and Pedro Valencia. Jenna then stated her and her would arrive around 1530 to visit with PT. RN spoke with Emilee, house moving supervisor, at 1307 to notify her of the visitors. She stated that she would come to the unit to get the list of names. RN then called Myah with MTN and updated her on when the sister is coming so that she can speak with family in person. Myah verbalized understanding and stated she would be on unit at 1400 to wait for family. RN verbalized understanding. Will continue to monitor.
--- NOTE | 2019-09-10 17:15 | NUR ---
RN spoke with Dr. Alexander at 1705 in regards to family update. PT's sister, Jenna, her , and two cousins have arrived to visit with PT. Jenna and her , Evan, spoke with SUKUMAR bass in the family conference room at 1600. SUKUMAR bass told RN after speaking with family that they wish to donate organs but do not want to withdraw care until so that family has enough time to say their goodbyes. Dr. Alexander verbalized understanding. RN also updated Dr. Iqbal of the situation. Will continue to monitor.
[2019-09-10 21:58] LABS: BE(vivo) -5.7 mmol/L (-2 to +3); HCO3 16.5 mmol/L (22.0-26.0); PCO2 24.5 mmHg (35.0-45.0); PO2 115.8 mmHg (80.0-100.0); pH 7.445 (7.360-7.450); sO2 98.5 % (92.0-98.0)
[2019-09-10 22:34] LABS: ABSOLUTE NEUTROPHILS 6.8 thou/uL (1.4-8.2); BASOPHILS 0.4 % (0.0-2.0); EOSINOPHILS 0.2 % (0.0-3.0); HEMATOCRIT 42.6 % (42.0-52.0); MCH 28.3 pg (26.0-34.0); MCHC 32.8 g/dL (28.0-37.0); MCV 86.5 fL (80.0-100.0); MONOCYTES 11.4 % (1.0-8.0); PLATELET COUNT 184 thou/uL (150-400); RBC 4.93 mil/uL (4.50-6.00); RDW 14.3 % (10.5-14.5); WBC 9.7 thou/uL (4.0-11.0)
[2019-09-10 22:48] LABS: APTT 46.7 Seconds (24.5-32.8); INR 1.9; PROTIME 19.6 Seconds (9.3-11.4)
[2019-09-10 22:53] LABS: FIBRINOGEN 661.3 mg/dL (210-360)
[2019-09-10 22:53] LABS: ALBUMIN 2.5 g/dL (3.4-5.0); CALCIUM 8.6 mg/dL (8.5-10.1); CREATININE 2.2 mg/dL (0.7-1.3); DIRECT BILIRUBIN 0.1 mg/dL (<0.1-0.2); MAGNESIUM 2.2 mg/dL (1.8-2.4); PHOSPHORUS 3.6 mg/dL (2.5-4.9); TOTAL BILIRUBIN 0.4 mg/dL (<0.1-1.0); TOTAL PROTEIN 6.2 g/dL (6.4-8.2)
[2019-09-10 23:29] LABS: URINE BILIRUBIN NEGATIVE (Negative); URINE BLOOD TRACE (Negative); URINE CLARITY CLEAR; URINE COLOR YELLOW; URINE GLUCOSE-RANDOM* NEGATIVE (Negative); URINE KETONES NEGATIVE (Negative); URINE LEUKOCYTES-REFLEX NEGATIVE (Negative); URINE NITRITE-REFLEX NEGATIVE (Negative); URINE PROTEIN (DIPSTICK) 1+ (Negative); URINE UROBILINOGEN 0.2 E.U./dl (0.2-1.0)
[2019-09-10 23:45] LABS: BACTERIA-REFLEX 1-9 Few /HPF (None Seen); HYALINE CASTS 4-10 Moderate /LPF (None Seen); MUCUS 4-6 Moderate strn/LPF (None Seen); SQUAMOUS 4-10 Moderate /LPF (0-3); URINE RBC 0-2 Rare /HPF (0-2); URINE WBC-REFLEX 0-5 Rare /HPF (0-5)
[2019-09-10 23:46] LABS: CRYSTALS None Seen /LPF (None Seen)
[2019-09-11] VITALS (38 sets, daily range): BP systolic 144–180; BP diastolic 87–110
[2019-09-11 04:37] LABS: BE(vivo) -1.7 mmol/L (-2 to +3); HCO3 22.7 mmol/L (22.0-26.0); PCO2 37.6 mmHg (35.0-45.0); pH 7.399 (7.360-7.450); sO2 98.9 % (92.0-98.0)
[2019-09-11 05:20] LABS: ABSOLUTE NEUTROPHILS 7.5 thou/uL (1.4-8.2); BASOPHILS 0.3 % (0.0-2.0); HEMATOCRIT 43.9 % (42.0-52.0); HEMOGLOBIN 14.2 gm/dL (14.0-18.0); LYMPHOCYTES 8.4 % (24.0-44.0); MCH 28.3 pg (26.0-34.0); MCHC 32.2 g/dL (28.0-37.0); MCV 87.7 fL (80.0-100.0); MONOCYTES 1.2 % (1.0-8.0); PLATELET COUNT 184 thou/uL (150-400); POLYS 90.1 % (36.0-66.0); RBC 5.01 mil/uL (4.50-6.00); RDW 14.4 % (10.5-14.5); WBC 8.3 thou/uL (4.0-11.0)
[2019-09-11 05:33] LABS: ALBUMIN 2.5 g/dL (3.4-5.0); CALCIUM 8.2 mg/dL (8.5-10.1); CREATININE 2.1 mg/dL (0.7-1.3); POTASSIUM 4.2 mmol/L (3.5-5.1); TOTAL BILIRUBIN 0.4 mg/dL (<0.1-1.0); TOTAL PROTEIN 6.4 g/dL (6.4-8.2)
[2019-09-11 05:38] LABS: ALBUMIN 2.5 g/dL (3.4-5.0); DIRECT BILIRUBIN 0.2 mg/dL (<0.1-0.2); MAGNESIUM 2.2 mg/dL (1.8-2.4); PHOSPHORUS 4.6 mg/dL (2.5-4.9); TOTAL BILIRUBIN 0.4 mg/dL (<0.1-1.0); TOTAL PROTEIN 6.4 g/dL (6.4-8.2)
[2019-09-11 05:57] LABS: APTT 48.1 Seconds (24.5-32.8); PROTIME 20.2 Seconds (9.3-11.4)
[2019-09-11 06:02] LABS: FIBRINOGEN 770.1 mg/dL (210-360)
--- NOTE | 2019-09-11 06:38 | NUR ---
ASSUMED CARE OF PATIENT AT 1900. WORKED WITH MTN THROUGH THE NIGHT. LABS AND CULTURES SENT. HOURLY I & O, Q2H BLOOD SUGARS. NO S/S OF DISTRESS.
[2019-09-11 10:24] LABS: ABSOLUTE NEUTROPHILS 6.8 thou/uL (1.4-8.2); BASOPHILS 0.2 % (0.0-2.0); HEMATOCRIT 44.1 % (42.0-52.0); HEMOGLOBIN 14.3 gm/dL (14.0-18.0); LYMPHOCYTES 13.9 % (24.0-44.0); MCH 28.4 pg (26.0-34.0); MCHC 32.5 g/dL (28.0-37.0); MCV 87.3 fL (80.0-100.0); MONOCYTES 2.7 % (1.0-8.0); PLATELET COUNT 189 thou/uL (150-400); POLYS 83.2 % (36.0-66.0); RBC 5.05 mil/uL (4.50-6.00); RDW 14.2 % (10.5-14.5); WBC 8.2 thou/uL (4.0-11.0)
[2019-09-11 11:02] LABS: ALBUMIN 2.5 g/dL (3.4-5.0); CALCIUM 8.6 mg/dL (8.5-10.1); CREATININE 1.9 mg/dL (0.7-1.3); DIRECT BILIRUBIN 0.1 mg/dL (<0.1-0.2); MAGNESIUM 2.1 mg/dL (1.8-2.4); PHOSPHORUS 4.1 mg/dL (2.5-4.9); POTASSIUM 4.2 mmol/L (3.5-5.1); TOTAL BILIRUBIN 0.4 mg/dL (<0.1-1.0); TOTAL PROTEIN 6.2 g/dL (6.4-8.2)
[2019-09-11 11:08] LABS: APTT 45.7 Seconds (24.5-32.8)
[2019-09-11 11:09] LABS: FIBRINOGEN 770.1 mg/dL (210-360); INR 2.1
[2019-09-11 11:13] LABS: BE(vivo) -0.7 mmol/L (-2 to +3); PCO2 39.8 mmHg (35.0-45.0); PO2 149.3 mmHg (80.0-100.0); pH 7.398 (7.360-7.450); sO2 98.9 % (92.0-98.0)
--- NOTE | 2019-09-11 13:48 | NUR ---
ON-GOING ASSESSMENT: CM REVIEWED CHART AND SPOKE WITH ATTENDING. PT HAS POOR PROGNOSIS AND PHYSICIAN DISCUSSING WITH GUARDIAN/FAMILY REGARDING CARE. CM ATTEMPTED TO CONTACT CARLOTA BUSTOS PATIENTS PUBLIC PACKAGING ENGINEER/GUARDIAN IN ATTEMPTS TO SEE IF PATIENT IS AN ORGAN DONOR. CM LEFT VM AND AWAITING CALL BACK AT THIS TIME. CM ALSO NOTIFIED CM DIRECTOR APPEARS GUARDIAN AND FAMILY HAVE DIFFERENT WISHES REGARDING ORGAN DONATION AND AWAITING CALL BACK FROM GUARDIAN AT THIS TIME.
[2019-09-11 16:49] LABS: INR 2.2; PROTIME 22.9 Seconds (9.3-11.4)
[2019-09-11 16:53] LABS: BASOPHILS 0.2 % (0.0-2.0); HEMATOCRIT 42.5 % (42.0-52.0); HEMOGLOBIN 13.9 gm/dL (14.0-18.0); LYMPHOCYTES 18.1 % (24.0-44.0); MCH 28.4 pg (26.0-34.0); MCHC 32.8 g/dL (28.0-37.0); MCV 86.8 fL (80.0-100.0); MONOCYTES 8.1 % (1.0-8.0); PLATELET COUNT 175 thou/uL (150-400); POLYS 73.6 % (36.0-66.0); RDW 14.3 % (10.5-14.5); WBC 8.2 thou/uL (4.0-11.0)
[2019-09-11 16:54] LABS: FIBRINOGEN 754.7 mg/dL (210-360)
[2019-09-11 17:09] LABS: ALBUMIN 2.5 g/dL (3.4-5.0); CALCIUM 8.6 mg/dL (8.5-10.1); CREATININE 1.7 mg/dL (0.7-1.3); DIRECT BILIRUBIN 0.1 mg/dL (<0.1-0.2); MAGNESIUM 2.2 mg/dL (1.8-2.4); POTASSIUM 4.2 mmol/L (3.5-5.1); TOTAL BILIRUBIN 0.4 mg/dL (<0.1-1.0); TOTAL PROTEIN 6.2 g/dL (6.4-8.2)
--- NOTE | 2019-09-11 17:25 | NUR ---
Assumed care at 0700. No change in PT status. MTN footwear sales representative, [employer], is present on unit. Lab values are monitored per MTN guidelines with verbal agreeance by Dr. Iqbal. Bronchoscopy scheduled for tomorrow morning and arterial line insertion with Dr. Alexander to see if lungs are viable for donation. Neuro status remains unchanged from previous shift. A repeat EEG was completed. Results are pending. RN will continue to monitor.
[2019-09-11 23:08] LABS: HEMATOCRIT 42.6 % (42.0-52.0); HEMOGLOBIN 13.8 gm/dL (14.0-18.0); MCH 28.2 pg (26.0-34.0); MCHC 32.4 g/dL (28.0-37.0); RBC 4.9 mil/uL (4.50-6.00); RDW 14.2 % (10.5-14.5); WBC 8.9 thou/uL (4.0-11.0)
[2019-09-11 23:10] LABS: BE(vivo) -2.1 mmol/L (-2 to +3); HCO3 22.5 mmol/L (22.0-26.0); sO2 98.9 % (92.0-98.0)
[2019-09-11 23:10] LABS: CALCIUM 9.1 mg/dL (8.5-10.1); CREATININE 1.7 mg/dL (0.7-1.3); POTASSIUM 4.4 mmol/L (3.5-5.1)
[2019-09-11 23:16] LABS: MAGNESIUM 2.3 mg/dL (1.8-2.4)
[2019-09-11 23:18] LABS: ALBUMIN 2.6 g/dL (3.4-5.0); SGOT 40 U/L (15-37); SGPT 52 U/L (30-65); TOTAL BILIRUBIN 0.4 mg/dL (<0.1-1.0); TOTAL PROTEIN 6.2 g/dL (6.4-8.2)
[2019-09-11 23:29] LABS: INR 2.3; PROTIME 23.6 Seconds (9.3-11.4)
[2019-09-11 23:30] LABS: DIRECT BILIRUBIN < 0.1 mg/dL (<0.1-0.2)
[2019-09-11 23:35] LABS: FIBRINOGEN 596.6 mg/dL (210-360)
[2019-09-12] VITALS (15 sets, daily range): BP systolic 133–174; BP diastolic 76–109
--- NOTE | 2019-09-12 01:48 | NUR ---
CALLED AKIN MACKEY AT 2348. PT UOP FOR 2200 WAS 5CC AND 2300 5CC. NEW ORDERS FOR FLUID GIVEN AND IMPLEMENTED. UPDATED ABOUT PT STATUS. MTN NURSE KUMAR AT BEDSIDE DURING THE SHIFT. HYDRALAZINE GIVEN X1. VSS CURRENTLY STABLE. WILL CONTINUE TO MONITOR.
[2019-09-12 04:22] LABS: BE(vivo) -1.3 mmol/L (-2 to +3); HCO3 23.3 mmol/L (22.0-26.0); PCO2 38.9 mmHg (35.0-45.0); PO2 137.2 mmHg (80.0-100.0); pH 7.396 (7.360-7.450); sO2 98.7 % (92.0-98.0)
[2019-09-12 05:25] LABS: APTT 43.2 Seconds (24.5-32.8); INR 2.3; PROTIME 24.1 Seconds (9.3-11.4)
[2019-09-12 05:27] LABS: HEMATOCRIT 39.9 % (42.0-52.0); MCH 28.3 pg (26.0-34.0); MCHC 32.5 g/dL (28.0-37.0); MCV 87.1 fL (80.0-100.0); PLATELET COUNT 217 thou/uL (150-400); RBC 4.57 mil/uL (4.50-6.00); RDW 14.3 % (10.5-14.5); WBC 10.7 thou/uL (4.0-11.0)
[2019-09-12 05:30] LABS: FIBRINOGEN 606.6 mg/dL (210-360)
[2019-09-12 05:48] LABS: ALBUMIN 2.4 g/dL (3.4-5.0); CALCIUM 7.9 mg/dL (8.5-10.1); CREATININE 1.6 mg/dL (0.7-1.3); DIRECT BILIRUBIN 0.1 mg/dL (<0.1-0.2); MAGNESIUM 2.1 mg/dL (1.8-2.4); PHOSPHORUS 3.2 mg/dL (2.5-4.9); POTASSIUM 3.8 mmol/L (3.5-5.1); TOTAL BILIRUBIN 0.2 mg/dL (<0.1-1.0)
--- NOTE | 2019-09-12 07:36 | HC ---
[facility] [place] [address] CONSULTATION Name: SHANE TONG Room #: 245-P ADM IN M.R.#: [id number] Admission: 09/05/19 Attend Phys: Sahra Reynaga MD Discharge: Date of : 74 Report #: [id number] THIS REPORT FOR: cc: Evan Gaytan,Mona Vasquez MD ~ CC: Samm Tang REASON FOR CONSULTATION: Elevated creatinine. HISTORY OF PRESENT ILLNESS: Details are obtained from the medical chart. The patient is currently intubated. He is a swain of the [facility]. He was brought on 09/04 after a cardiac arrest. He was intubated and admitted to the ICU. The patient's creatinine on presentation was 1.1. This had risen to 2.3 as of yesterday and it is down to 2.0 as of this morning. He continues to make appropriate amount of urine. The patient had a complete neurological workup, and it looks like that the patient has a very grim prognosis. Details of his arrest events are not available. He was deemed to have hypoxic encephalopathy. He is nonverbal at his baseline. He had a significantly worsening cerebral edema. Currently, the patient is being followed by Cardiology, Pulmonology and Neurology. PAST MEDICAL HISTORY: 1. Schizophrenia. 2. Anxiety disorder. SOCIAL HISTORY: Resides in a nursing facility. Other details are not available. FAMILY HISTORY: Unobtainable given the patient's current mental status. REVIEW OF SYSTEMS: Unobtainable given the patient's current mental status. MEDICATIONS AT HOME: 1. Lorazepam. 2. Desmopressin for unclear reasons to me. 3. Levothyroxine. 4. Halopredone. 5. Olanzapine. ALLERGIES: None. PHYSICAL EXAMINATION: GENERAL: The patient is currently intubated. He is nonresponsive. [facility] [address] [place] [address] CONSULTATION Name: SHANE TONG Room #: 245-P [facility] IN [facility].#: [id number] Admission: 09/05/19 Attend Phys: Sahra Reynaga MD Discharge: Date of : 74 Report #: [id number] EYES: Pupils are fixed, dilated. HEAD AND NECK: ET tube in place. CHEST: No crackles. CARDIOVASCULAR: No rub. ABDOMEN: Soft. EXTREMITIES: Lower extremities +1 edema. LABORATORY DATA: Sodium 148, potassium is 3.8, BUN is 37; creatinine is 2.0, down from 2.3. IMAGING: - Chest x-ray, mild interstitial prominence. - CT scan with worsening cerebral edema. IMPRESSION AND PLAN: 1. Acute kidney injury post cardiac arrest. 2. Hypernatremia. 3. Hypoxic encephalopathy. 4. Seizure disorder. This is a rather grim prognosis. The patient is nonresponsive with fixed dilated pupils. He is currently followed by Neurology, Cardiology and Pulmonology. From the renal perspective, his creatinine, as expected, had risen post cardiac arrest; however, seems to be trending down. He does have hypernatremia and I will increase rate of his D5W It is not clear to me why the patient is maintained on desmopressin, and this will need to be clarified with his guardian if we wish to continue with his medical care. Ongoing discussions regarding the patient, long-term care including palliative, comfort, withdrawal. <ELECTRONICALLY SIGNED> By: Mona Cooley MD 09/12/19 0736 [id number] Mona Cooley MD /nt
[2019-09-12 08:27] LABS: ANISOCYTOSIS SLIGHT
[2019-09-12 10:00] LABS: BE(vivo) -0.5 mmol/L (-2 to +3); HCO3 24.4 mmol/L (22.0-26.0); PCO2 40.9 mmHg (35.0-45.0); PO2 150.7 mmHg (80.0-100.0); pH 7.393 (7.360-7.450); sO2 98.9 % (92.0-98.0)
--- NOTE | 2019-09-12 12:05 | NUR ---
discussed during los, possible sister and pt dad will be coming into and will with drawl of care and family would like for organs to be donated if possible. will cont following as needed for dc needs. md going to speak with respiratory MD as well. with drawl nickie possible for 1500 today.
[2019-09-12 12:39] LABS: URINE BILIRUBIN NEGATIVE (Negative); URINE BLOOD TRACE (Negative); URINE CLARITY CLEAR; URINE COLOR YELLOW; URINE GLUCOSE-RANDOM* NEGATIVE (Negative); URINE KETONES NEGATIVE (Negative); URINE LEUKOCYTES-REFLEX NEGATIVE (Negative); URINE NITRITE-REFLEX NEGATIVE (Negative); URINE PROTEIN (DIPSTICK) NEGATIVE (Negative); URINE UROBILINOGEN 0.2 E.U./dl (0.2-1.0)
[2019-09-12 12:53] LABS: HEMATOCRIT 42.1 % (42.0-52.0); HEMOGLOBIN 13.8 gm/dL (14.0-18.0); MCH 28.5 pg (26.0-34.0); MCHC 32.8 g/dL (28.0-37.0); MCV 86.9 fL (80.0-100.0); PLATELET COUNT 234 thou/uL (150-400); RBC 4.84 mil/uL (4.50-6.00); RDW 14.4 % (10.5-14.5); WBC 10.6 thou/uL (4.0-11.0)
[2019-09-12 13:06] LABS: APTT 43.2 Seconds (24.5-32.8); FIBRINOGEN 577.5 mg/dL (210-360); INR 2.4; PROTIME 24.8 Seconds (9.3-11.4)
[2019-09-12 13:07] LABS: ALBUMIN 2.7 g/dL (3.4-5.0); AMYLASE 146 U/L (25-115); ANION GAP 7 mmol/L (7-16); BUN 38 mg/dL (7-18); CALCIUM 8.3 mg/dL (8.5-10.1); CHLORIDE 112 mmol/L (98-107); CO2 26 mmol/L (21-32); CREATININE 1.6 mg/dL (0.7-1.3); DIRECT BILIRUBIN < 0.1 mg/dL (<0.1-0.2); GLUCOSE 227 mg/dL (74-106); LIPASE 871 U/L (73-393); POTASSIUM 3.8 mmol/L (3.5-5.1); SGOT 39 U/L (15-37); SGPT 45 U/L (30-65); SODIUM 145 mmol/L (136-145); TOTAL BILIRUBIN 0.2 mg/dL (<0.1-1.0); TOTAL PROTEIN 6.5 g/dL (6.4-8.2)
[2019-09-12 13:12] LABS: ABSOLUTE NEUTROPHILS 7.5 thou/uL (1.4-8.2); PLATELET ESTIMATE NORMAL
[2019-09-12 13:21] LABS: GGTP 177 U/L (15-85)
--- NOTE | 2019-09-12 17:05 | NUR ---
ASSUMED CARE AT 0700, ASSESSMENT AND VITAL SIGNS COMPLETED PER ICU PROTOCOL. DR. MATHIAS ROUNDED THIS AM, NEW ORDERS RECEIVED AND EXECUTED. DR. MATHIAS PAGED AND NOTIFIED OF BP, NEW ORDERS RECEIVED AND EXECUTED. DR. MINER ROUNDED, NO NEW ORDERS RECEIVED. MTN PRESENT DURING SHIFT TO ORGANIZE AND EXECUTE ORGAN DONATION. WHILE DR. MATHIAS WAS ROUNDING, THERE WAS CONFUSION IN REGARDS TO FAMILY BEING AWARE OF DECISION. SALESPERSON WOMEN'S HATS INVOLVED AND AWARE OF SITUATION. IT WAS DISCOVERED THAT FAMILY WAS PRESENT, AWARE, AND CONSENTED TO DONATION ON 09/09. AT THAT POINT, COMFORT CARE ORDERS WERE GIVEN AND IN PROCESS. PT TRANSPORTED TO PACU BY RNX2, RT, MTN TEAM. PT EXTUBATED IN PACU AT 1527, DR. MATHIAS PRESENT. PT ANNOUNCED BY DR. MATHIAS AT 1553, TRANSPORTED TO OR BY RNX2 AND MTN TEAM. OR TEAM ASSUMED CARE, RN HANDS OFF PT, ORGAN HARVEST WAS UNDERWAY AT THAT POINT.
[2019-09-13 10:07] LABS: ADENOVIRUS Negative (Negative); INFLUENZA A Negative (Negative); INFLUENZA B Negative (Negative); METAPNEUMOVIRUS Negative (Negative); PARAINFLUENZA 1 Negative (Negative); PARAINFLUENZA 2 Negative (Negative); PARAINFLUENZA 3 Negative (Negative); RHINOVIRUS Negative (Negative); RSV A Negative (Negative); RSV B Negative (Negative)
== END 2019-09-12 15:53 | DRG 870 ==
LOC: ER 04:01 → EROBS 09:39 → ICU 09:39
PROVIDERS: Emergency Medicine; Hospitalist; Internal Medicine Pulmonary Disease; Nurse Practitioner Family; Pediatrics; ADMIT Internal Medicine
PROC: 0BH17EZ Insertion of Endotracheal Airway into Trachea, Via Natural or Artificial Opening (ICD-10-PCS; principal; 2019-08-16)
PROC: 5A1955Z Respiratory Ventilation, Greater than 96 Consecutive Hours (ICD-10-PCS; principal; 2019-08-16)
PROC: 02H633Z Insertion of Infusion Device into Right Atrium, Percutaneous Approach (ICD-10-PCS; 2019-09-05)
PROC: 03HY32Z Insertion of Monitoring Device into Upper Artery, Percutaneous Approach (ICD-10-PCS; 2019-09-12)
DX: A41.9 Sepsis, unspecified organism (principal); J96.01 Acute respiratory failure with hypoxia; K85.90 Acute pancreatitis without necrosis or infection, unspecified; N17.0 Acute kidney failure with tubular necrosis; K72.00 Acute and subacute hepatic failure without coma; G93.1 Anoxic brain damage, not elsewhere classified; E87.0 Hyperosmolality and hypernatremia; I42.9 Cardiomyopathy, unspecified; F20.0 Paranoid schizophrenia; S22.32XA Fracture of one rib, left side, initial encounter for closed fracture; F41.9 Anxiety disorder, unspecified; G40.909 Epilepsy, unspecified, not intractable, without status epilepticus; K59.09 Other constipation; I49.01 Ventricular fibrillation; E03.9 Hypothyroidism, unspecified; D69.6 Thrombocytopenia, unspecified; Z66 Do not resuscitate; W18.39XA Other fall on same level, initial encounter; Y93.89 Activity, other specified; Y92.89 Other specified places as the place of occurrence of the external cause; Y99.8 Other external cause status
CPT/HCPCS: 10078; 27000; 50101; 50554; 57103; 85026